=== PATIENT | male | born 1995 | race Two or more races ===

== ENCOUNTER → 2020-04-01 | Emergency (ER) | payer OTHER ==
[~2020-04-01] VITALS: Ht 177.8 cm; Wt 70.3 kg
[~2020-04-01] MED LIST: MUPIROCIN1 G1 TOP; TYLENOL325 MG PO
== END | disposition home or self-care (01) ==
LOC: ER 13:47
DX: S80.811A Abrasion, right lower leg, initial encounter (principal); W22.8XXA Striking against or struck by other objects, initial encounter; Y93.89 Activity, other specified; Y92.89 Other specified places as the place of occurrence of the external cause; Y99.8 Other external cause status